=== PATIENT | female | born 2000 | race Two or more races ===

== ENCOUNTER 2019-02-19 12:25 | Emergency (ER) | payer OTHER | END 2019-02-19 13:47 | disposition home or self-care (01) | LOC: E/R 12:25 | DX: J02.9 Acute pharyngitis, unspecified (principal); Z81.2 Family history of tobacco abuse and dependence | CPT/HCPCS: 99283 ==

== ENCOUNTER 2019-02-24 17:17 | Emergency (ER) | payer SELFPAY, OTHER | END 2019-02-24 19:55 | disposition left against medical advice (07) | LOC: FTE 17:17 | DX: Z53.21 Procedure and treatment not carried out due to patient leaving prior to being seen by health care provider (principal) ==

== ENCOUNTER 2019-03-16 19:35 | Emergency (ER) | payer OTHER ==
[2019-03-16] MEDS: ACETAMINOPHEN 500 MG TAB PO (20:28)
[2019-03-16 20:41] LABS: ADD UMIC YES; UR ASCORBIC ACID NEGATIVE (NEGATIVE); UR BACTERIA MODERATE /HPF (NONE SEEN); UR BILIRUBIN (Dip) NEGATIVE (NEGATIVE); UR BLOOD (Dip) NEGATIVE (NEGATIVE); UR CLARITY SLIGHTLY CLOUDY (CLEAR); UR COLOR YELLOW (YELLOW); UR GLUCOSE (Dip) NEGATIVE (NEGATIVE); UR KETONES (Dip) NEGATIVE (NEGATIVE); UR LEUKOCYTE ESTERASE (Dip) 2+ Leu/ul (NEGATIVE); UR NITRITE (Dip) POSITIVE (NEGATIVE); UR RBC 3 /HPF (0-5); UR SPECIFIC GRAVITY (Dip) 1.013 (1.003-1.030); UR SQUAMOUS EPITHELIAL CELL MANY /HPF (FEW); UR TOTAL PROTEIN (Dip) NEGATIVE (NEGATIVE); UR UROBILINOGEN (Dip) NEGATIVE (NEGATIVE); UR WBC 65 /HPF (0-5)
== END 2019-03-16 22:27 | disposition home or self-care (01) ==
LOC: FTE 19:35
DX: N39.0 Urinary tract infection, site not specified (principal)
CPT/HCPCS: 76830; 76856; 81001; 81025; 99284-25